=== PATIENT | female | born 1995 | race Caucasian/White ===

== ENCOUNTER 2016-10-26 20:12 | Emergency (ER) | payer OTHER ==
[2016-10-26 20:38] VITALS: BP 136/68; PULSE 69; TEMP 97.7; BMI 26.6
[2016-10-26] MEDS ORDERED: IBUPROFEN 600 MG TABLET (FP) PO ONE (22:43)
[2016-10-26] MEDS ORDERED: OXYCODONE/APAP 5/325MG COMBO TABLET ONE (22:43)
[2016-10-27] MEDS ORDERED: ONDANSETRON *ODT* 4 MG TABLET ONE (00:08)
[2016-10-27] MEDS ORDERED: IBUPROFEN 600 MG TABLET (FP) PO ONE (00:12)
[2016-10-27] MEDS ORDERED: OXYCODONE/APAP 5/325MG COMBO TABLET PO ONE (00:13)
[2016-10-27] MEDS ORDERED: ONDANSETRON *ODT* 4 MG TABLET SL ONE (00:14)
--- NOTE | 2016-10-27 00:16 | PDOC ---
History of Present Illness - History of Present Illness Initial Comments: 10/27/16 00:21 The patient is a 21 year old female with no past medical hx who presents to the ED complaining of a left sided toothache for two days. The patient reports associated neck pain and swelling, and left ear pain. She also reports fever, chill, and nausea. The patient denies vomiting, diarrhea The patient denies chest pain, SOB Social: No toxic habits reported Allergies:NKDA Surgical: none reported PCP: N/A <Fiona Mazariegos - Last Filed: 10/27/16 00:21> <Meceh Rolon - Last Filed: 10/27/16 01:06> - General Chief Complaint: Toothache Stated Complaint: TOOTHACHE Time Seen by Provider: 10/26/16 22:17 Past History <Fiona Mazariegos - Last Filed: 10/27/16 00:21> - Past Medical History Other medical history: denies - Psycho/Social/Smoking Cessation Hx Suicidal Ideation: No Smoking History: Never smoked Hx Alcohol Use: No Drug/Substance Use Hx: No Substance Use Type: None <Meche Rolon - Last Filed: 10/27/16 01:06> - Past Medical History Home Medications: Ambulatory Orders Ibuprofen [Motrin -] 600 mg PO TID PRN #21 tablet 10/27/16 Review of Systems - Review of Systems Able to Perform ROS?: Yes Comments:: 10/27/16 00:22 CONSTITUTIONAL: +fever, chills Absent: diaphoresis, generalized weakness, malaise, loss of appetite HEENT: +Left sided toothache, left ear pain Absent: rhinorrhea, nasal congestion, throat pain, throat swelling, difficulty swallowing, mouth swelling, eye pain, visual Changes CARDIOVASCULAR: Absent: chest pain, syncope, palpitations, irregular heart rate, lightheadedness , peripheral edema RESPIRATORY: Absent: cough, shortness of breath, dyspnea with exertion, orthopnea, wheezing, stridor, hemoptysis GASTROINTESTINAL: +Nausea Absent: abdominal pain, abdominal distension, vomiting, diarrhea, constipation, melena, hematochezia GENITOURINARY: Absent: dysuria, frequency, urgency, hesitancy, hematuria, flank pain, genital pain MUSCULOSKELETAL: +Neck pain and swelling Absent: arthralgia, joint swelling SKIN: Absent: rash, itching, pallor HEMATOLOGIC/IMMUNOLOGIC: Absent: easy bleeding, easy bruising, lymphadenopathy, frequent infections ENDOCRINE: Absent: unexplained weight gain, unexplained weight loss, heat intolerance, cold intolerance NEUROLOGIC: Absent: headache, focal weakness or paresthesias, dizziness, unsteady gait, seizure, mental status changes, bladder or bowel incontinence PSYCHIATRIC: Absent: anxiety, depression, suicidal or homicidal ideation, hallucinations. <Fiona Mazariegos - Last Filed: 10/27/16 00:21> *Physical Exam - Vital Signs Last Vital Signs Temp Pulse Resp BP Pulse Ox 97.7 F 69 18 136/68 99 10/26/16 20:36 10/26/16 20:36 10/26/16 20:36 10/26/16 20:36 10/26/16 20:36 - Physical Exam Comments: 10/27/16 00:22 GENERAL: Well developed, well nourished. Awake and alert. No acute distress. HEENT: +left mandibular quadrant #17 is partially rupted third molar,no pericarditis, # 19 the first molar has distal carries on half of tooth. Normocephalic, atraumatic. PERRLA, EOMI. No conjunctival pallor. Sclera are non- icteric. Moist mucous membranes. Oropharynx is clear. NECK: Supple. Full ROM. No JVD. Carotid pulses 2+ and symmetric, without bruits. No thyromegaly. No lymphadenopathy. CARDIOVASCULAR: Regular rate and rhythm. No murmurs, rubs, or gallops. Distal pulses are 2+ and symmetric. PULMONARY: No evidence of respiratory distress. Lungs clear to auscultation bilaterally. No wheezing, rales or rhonchi. ABDOMINAL: Soft. Non-tender. Non-distended. No rebound or guarding. No organomegaly. Normoactive bowel sounds. MUSCULOSKELETAL Normal range of motion at all joints. No bony deformities or tenderness. No CVA tenderness. EXTREMITIES: No cyanosis. No clubbing. No edema. No calf tenderness. SKIN: Warm and dry. Normal capillary refill. No rashes. No jaundice. NEUROLOGICAL: Alert, awake, appropriate. Cranial nerves 2-12 intact. No deficits to light touch and temperature in face, upper extremities and lower extremities. No motor deficits in the in face, upper extremities and lower extremities. Normoreflexic in the upper and lower extremities. Normal speech. Toes are down-going bilaterally. Gait is normal without ataxia. PSYCHIATRIC: Cooperative. Good eye contact. Appropriate mood and affect <Fiona Mazariegos - Last Filed: 10/27/16 00:21> - Vital Signs Last Vital Signs Temp Pulse Resp BP Pulse Ox 97.7 F 69 18 136/68 99 10/26/16 20:36 10/26/16 20:36 10/26/16 20:36 10/26/16 20:36 10/26/16 20:36 <Meche Rolon - Last Filed: 10/27/16 01:06> Medical Decision Making - Medical Decision Making 10/27/16 00:16 21-year-old female presents with left-sided toothache. On exam, she has a partially erupted third mandibular left molar and also a grossly carious first molar -Patient was given Motrin and Percocet with them, became nauseous and was given Zofran. Patient will follow-up with her dentist at the clinic tomorrow <Meche Rolon - Last Filed: 10/27/16 01:06> *DC/Admit/Observation/Transfer - Attestations Scribe Attestion: 10/27/16 00:23 Documentation prepared by Fiona Mazariegos, acting as hospitalist medical director for Meche Rolon MD/. 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
== END 2016-10-27 01:49 | disposition home or self-care (01) ==
LOC: JER 20:12 → JERFT 20:12 → JER 10-27 01:49
DX: K02.9 Dental caries, unspecified (principal)
CPT/HCPCS: 99281-25

== ENCOUNTER 2017-12-19 08:22 | Emergency (ER) | payer OTHER ==
[2017-12-19 08:43] VITALS: BP 147/67; PULSE 78; TEMP 97.6; BMI 36.6
[2017-12-19] MEDS ORDERED: AMOXICILLIN 500 MG CAPSULE (FP) PO ONE (09:12)
[2017-12-19] MEDS ORDERED: KETOROLAC TROMETHAMINE 60 MG/2 ML VIAL IM ONE (09:12)
--- NOTE | 2017-12-19 09:17 | PDOC ---
History of Present Illness - General Chief Complaint: Toothache Stated Complaint: TOOTHACHE Time Seen by Provider: 12/19/17 09:08 History Source: Patient Exam Limitations: No Limitations - History of Present Illness Initial Comments: 12/19/17 09:12 Came for evaluation of left lower jaw pain. States cracked a second lower molar on the left side one month ago and has progressively eroded. States woke up 2 days ago with tenderness which is progressively worsened. Now has some swelling to her face, and radiating pain to her ear and jaw. Denies fevers, denies any purulent drainage from area. Has a dental appointment tomorrow Timing/Duration: unsure, 1 week, getting worse Severity: mild Associated Symptoms: reports: loss of appetite, malaise. denies: fever/chills Past History - Travel Traveled outside of the country in the last 30 days: No Close contact w/someone who was outside of country & ill: No - Past Medical History Allergies/Adverse Reactions: Allergies Allergy/AdvReac Type Severity Reaction Status Date / Time No Known Allergies Allergy Verified 12/19/17 08:36 Home Medications: Ambulatory Orders Amoxicillin - [Amoxicillin 500mg Capsule -] 500 mg PO TID #21 capsule 12/19/17 Oxycodone HCl/Acetaminophen [Percocet 5-325 mg Tablet -] 1 - 2 tab PO Q4H PRN # 7 tablet MDD 4 12/19/17 COPD: No - Suicide/Smoking/Psychosocial Hx Smoking History: Never smoked Have you smoked in the past 12 months: No Information on smoking cessation initiated: No Hx Alcohol Use: No Drug/Substance Use Hx: No Substance Use Type: None Review of Systems - Review of Systems Able to Perform ROS?: Yes Is the patient limited Chadian proficient: Yes Constitutional: Yes: Symptoms Reported, See HPI, Loss of Appetite, Malaise. No : Fever HEENTM: Yes: Symptoms Reported, See HPI, Mouth Pain, Dental Problems, Mouth Swelling Respiratory: No: See HPI Musculoskeletal: Yes: See HPI. No: Symptoms Reported Integumentary: Yes: See HPI. No: Symptoms Reported All Other Systems: Reviewed and Negative *Physical Exam - Vital Signs Last Vital Signs Temp Pulse Resp BP Pulse Ox 97.6 F 78 12 147/67 99 12/19/17 08:36 12/19/17 08:36 12/19/17 08:36 12/19/17 08:36 12/19/17 08:36 - Physical Exam General Appearance: Yes: Nourished, Appropriately Dressed, Apparent Distress, Moderate Distress HEENT: positive: TMs Normal, Pharynx Normal, Other (has an eroded left lower second molar with exposed nerve roots. No gum or gingival abscess palpated). 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, Fully Oriented, Alert, Normal Mood/ Affect, Normal Response, Motor Strength 5/5 *DC/Admit/Observation/Transfer Diagnosis at time of Disposition: Pain, dental - Discharge Dispostion Disposition: HOME Condition at time of disposition: Stable Admit: No - Prescriptions Prescriptions: Amoxicillin - [Amoxicillin 500mg Capsule -] 500 mg PO TID #21 capsule Oxycodone HCl/Acetaminophen [Percocet 5-325 mg Tablet -] 1 - 2 tab PO Q4H PRN # 7 tablet MDD 4 PRN Reason: Pain - Referrals Referrals: Harpreet Velazco [Primary Care Provider] - - Patient Instructions Printed Discharge Instructions: DI for Dental Pain Additional Instructions: Rest, drink lots of fluids: Teas, water, soups Saltwater gargles/ keep mouth clean and rinse after each meal May use wet teabag for pain relief to area Avoid hard chewing foods, stick to ice cream, Jell-O, yogurt etc. Tylenol or Motrin for fever and pain Complete all medication as prescribed Seek dental appointment as soon as possible for evaluation of dental injury/pain Followup with private physician in one to 2 days as needed Return to emergency department for worsened symptoms, fevers, swelling to face or worsened pain - Post Discharge Activity Forms/Work/School Notes: Back to Work
[2017-12-19] MEDS ORDERED: KETOROLAC TROMETHAMINE 60 MG/2 ML VIAL ONE (09:35)
[2017-12-19] MEDS ORDERED: AMOXICILLIN 250 MG CAPSULE ONE (09:41)
== END 2017-12-19 09:48 | disposition home or self-care (01) ==
LOC: JER 08:22 → JERFT 08:22
PROC: 3E0233Z Introduction of Anti-inflammatory into Muscle, Percutaneous Approach (ICD-10-PCS; principal; 2017-12-19)
DX: K08.89 Other specified disorders of teeth and supporting structures (principal)
CPT/HCPCS: 84703; 99281-25

== ENCOUNTER 2018-03-10 11:54 | Emergency (ER) | payer SELFPAY ==
[2018-03-10 12:20] VITALS: BMI 33.3
--- NOTE | 2018-03-10 13:37 | PDOC ---
History of Present Illness - General Chief Complaint: Vaginal Bleeding Stated Complaint: VAGINAL BLEEDING Time Seen by Provider: 03/10/18 13:00 History Source: Patient Exam Limitations: No Limitations - History of Present Illness Initial Comments: This is a 22 YOF with unremarkable PMH who has not seen a medical provider in the past 8 years, who p/w vaginal bleeding and lower abdominal cramping worsening over the past 3 weeks, with several very large clots passed in the past 24 hours. She notes that her menstrual periods normally last up to a month , but this time is different because she is passing the clots. She does not know whether or not she may be but has been trying to get with her boyfriend for the past 7 years without success. She additionally notes mild tiredness/fatigue/weakness and nausea particularly during her menstrual period. She notes strong-smelling urine but denies any headache, lightheadedness , LOC, chest pain, SOB, burning on urination, or other symptoms. Past History - Past Medical History Allergies/Adverse Reactions: Allergies Allergy/AdvReac Type Severity Reaction Status Date / Time No Known Allergies Allergy Verified 03/10/18 12:16 Home Medications: Ambulatory Orders NK [No Known Home Medication] 03/10/18 COPD: No - Reproductive History (#): 0 Para: 0 - Suicide/Smoking/Psychosocial Hx Smoking History: Never smoked Have you smoked in the past 12 months: No Hx Alcohol Use: No Drug/Substance Use Hx: No Substance Use Type: None Review of Systems - Review of Systems Able to Perform ROS?: Yes Constitutional: Yes: Weakness, Other (fatigue). No: Chills, Fever, Unexplained wgt Loss HEENTM: No: Nose Congestion, Throat Pain Respiratory: No: Cough, Shortness of Breath Cardiac (ROS): No: Chest Pain, Palpitations ABD/GI: Yes: Nausea (mild), Other (lower abdominal cramping). No: Constipated, Diarrhea, Vomiting : Yes: Other (vaginal bleeding with clots, strong smelling urine). No: Burning, Dysuria Musculoskeletal: No: Back Pain, Neck Pain Integumentary: No: Bruising, Rash Neurological: No: Headache, Numbness, Tingling, Weakness, Dizziness Endocrine: No: Unexplained Weight Gain, Unexplained Weight Loss *Physical Exam - Vital Signs Last Vital Signs Temp Pulse Resp BP Pulse Ox 98.4 F 84 18 124/77 98 03/10/18 12:16 03/10/18 12:16 03/10/18 12:16 03/10/18 12:16 03/10/18 12:16 - Physical Exam General Appearance: Yes: Nourished, Appropriately Dressed, Obese, Other (very pleasant and well-appearing young adult female, conversive and answering questions appropriately, appears comfortable). No: Apparent Distress HEENT: positive: EOMI, Normal Voice, Hearing Grossly Normal. negative: Scleral Icterus (R), Scleral Icterus (L), Nasal Congestion Neck: positive: Trachea midline, Supple. negative: Tender, Rigid Respiratory/Chest: positive: Lungs Clear, Normal Breath Sounds. negative: Respiratory Distress, Crackles, Rhonchi, Stridor, Wheezing Cardiovascular: positive: Regular Rhythm, Regular Rate, S1, S2. negative: Edema , JVD, Murmur Female Pelvic Exam: positive: normal external exam, cervical os closed, normal adnexa, vaginal bleeding (with small dark red clot). negative: CMT, discharge, adnexal tenderness Gastrointestinal/Abdominal: positive: Normal Bowel Sounds, Soft. negative: Tender, Organomegaly, Pulsatile Mass, Guarding Musculoskeletal: positive: Normal Inspection. negative: Decreased Range of Motion, Vertebral Tenderness Extremity: positive: Normal Capillary Refill, Normal Inspection, Normal Range of Motion. negative: Tender, Cyanosis Integumentary: positive: Normal Color, Dry, Warm. 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 VS: Exam: DDX IBNLT: dysmenorrhea, menorrhagia, endometriosis, fibroids, threatened/ inevitable/incomplete/complete/septic , ectopic, PID/TOA/cervicitis, endometritis, ruptured ovarian cyst, ovarian torsion, malignancy, rectal bleed, hematuria, constipation, etc. Ordered is: UA UCx hCG Pelvic US. Unlikely threatened as cervical os is open, pt large mucus colored clot passage. Unlikely inevitable as cervical os is closed, pt denies large amount of clot passage. Unlikely incomplete as cervical os is closed, pt denies large amount of clot passage. Unlikely complete as cervical os is open, uterus not clinically contracted. Unlikely septic as cervical os is closed, no purulent discharge on pelvic exam, no uterine ttp, no f/c. Unlikely ectopic at patient denies known , no prior procedure or infection. Unlikely PID/TOA/cervicitis as patient denies h/o STIs, no report of abnormal discharge no adnexal ttp Unlikely endometritis as patient denies recent procedures or abnormal discharge , no f/c. Unlikely ovarian cyst as patient denies h/o ovarian cysts, unlikely hemorrhagic as pt denies sxs of anemia. Unlikely ovarian torsion as patient has no adnexal ttp on bimanual exam. Unlikely UTI/pyelonephritis as patient has no dysuria, strange colors/smells, no h/o recurrent UTI. Unlikely malignancy as patient has no palpable mass, no reported recent B symptoms. Labs: Blood type is:~ US: Reassessment: Repeat VS:~ ADMIT The patients symptoms persist despite ED treatments. The patient is unsafe for discharge at this time. They require further hospital observation, workup, and treatment. Microblog sent to [facility] for admission. Spoke with [facility], in agreement patient to be admitted to: XXXX Decision to Admit order placed to [facility] covering attending. DISCHARGE The patient is offered misoprostol to aid the passage of products of conception. They are counseled on the risks and benefits, they understand, and are aware this is optional. They choose to take misoprostol, dose was given here, they understand to expect more blood/pain. The patient does XXXXX require Rhogam. Workup is not concerning for emergency-level pathology at this time. The patient is appropriate for discharge home w/ close outpatient f/u. The patient is comfortable with this plan and will follow up with their PCP in 1 -3 days. She will take primarily Tylenol for pain. 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 Return precautions are discussed and they will come back to the ER if necessary. 03/10/18 13:46 *DC/Admit/Observation/Transfer Diagnosis at time of Disposition: Dysmenorrhea Menorrhagia Qualifiers: Menorrahagia type: with onset of menstrual periods Qualified Code(s): N92.2 - Excessive menstruation at puberty - Discharge Dispostion Disposition: HOME Condition at time of disposition: Stable Decision to Admit order: No - Referrals Referrals: Kely Wilhelm MD [Staff Physician] - [facility] [place] [Provider Group] - Patient Instructions Printed Discharge Instructions: DI for Menorrhagia Additional Instructions: You were seen in the ER for painful menstrual cramps and vaginal bleeding. We did an exam, and laboratory work on your blood and urine. After our assessment, we do not think you are having a medical emergency at this time, and you are safe to go home. Please take Naproxen and Tylenol for cramps, and use a hot pack or heating pad. Follow up with your horse farm manager (we are giving you referral information) and a regular primary doctor (we are giving you referral information for this too) in the next 1-3 days. Call their clinic [facility], tell them you were seen in the ER, and tell them you need an appointment. Please come back to the ER at any time (24 hours a day) for any new or worsening symptoms, like worsening pelvic pain, discharge, high fever, headache, seizure, fainting, anemia, large amount of blood loss, or other symptoms. If you are having severe or life threatening symptoms, or symptoms that make it unsafe to drive or have someone drive you, please call 911. - Post Discharge Activity
[2018-03-10 13:40] LABS: BASO % 0.6 % (0-2.0); EOS % 0.9 % (0-4.5); HEMATOCRIT 38.2 % (32.4-45.2); HEMOGLOBIN 13.2 GM/dL (10.7-15.3); LYMPH % 37.5 % (8-40); MCH 28.2 pg (25.7-33.7); MCHC 34.5 g/dl (32.0-36.0); MEAN CELL VOLUME 81.6 fl (80-96); MEAN PLT VOLUME 9.5 fl (7.5-11.1); MONO % 7.3 % (3.8-10.2); NEUT % 53.7 % (42.8-82.8); PLATELET COUNT 196 K/MM3 (134-434); RBC 4.68 M/mm3 (3.60-5.2); RDW 13.1 % (11.6-15.6); WHITE BLOOD COUNT 4.9 K/mm3 (4.0-10.0)
[2018-03-10 13:46] LABS: URINE APPEARANCE CLEAR; URINE BILIRUBIN NEGATIVE (<2.0 mg/dL); URINE COLOR YELLOW; URINE GLUCOSE (UA) NEGATIVE (NEGATIVE); URINE KETONE NEGATIVE (NEGATIVE); URINE LEUK ESTERASE NEGATIVE (NEGATIVE); URINE NITRITE NEGATIVE (NEGATIVE); URINE PROTEIN NEGATIVE (NEGATIVE); URINE UROBILINOGEN NEGATIVE mg/dL (0.2-1.0)
[2018-03-10 13:47] LABS: HCG,QUALITATIVE URINE NEGATIVE
[2018-03-10 13:51] LABS: INR 1.02 (0.82-1.09); PROTHROMBIN TIME (PATIENT) 11.5 SEC (9.7-13.0)
[2018-03-10 14:01] LABS: ALBUMIN 4.3 g/dl (3.4-5.0); ANION GAP 6 (8-16); BLOOD UREA NITROGEN 15 mg/dL (7-18); CALCIUM 9.3 mg/dL (8.5-10.1); CHLORIDE 105 mmol/L (98-107); CO2 28 mmol/L (21-32); GLUCOSE,RANDOM 104 mg/dL (74-106); POTASSIUM 4.1 mmol/L (3.5-5.1); SGOT/AST 21 U/L (15-37); SODIUM 139 mmol/L (136-145)
[2018-03-10 14:04] LABS: ALK PHOS 81 U/L (45-117); BILIRUBIN,TOTAL 0.9 mg/dL (0.2-1.0); CREATININE 0.8 mg/dL (0.55-1.02); SGPT/ALT 46 U/L (12-78); TOT PROT 8.3 g/dl (6.4-8.2)
--- NOTE | 2018-03-10 14:04 | PDOC ---
Attending Attestation - Resident Resident Name: Hope Manrique - ED Attending Attestation I have performed the following: I have examined & evaluated the patient, The case was reviewed & discussed with the resident, I agree w/resident's findings & plan, Exceptions are as noted - HPI HPI: 03/10/18 13:56 22y F presents with complaint of vaginal bleedin cecy dpassing long clots, current LMP going on for approx 3 weeks associated with mild nausea, no signs of sypmtomtaic anemia. Pt notes she has prolonged periods since her teens but never had it evlauated. pt denies any significant abd pain, fever/chills, n/v, back pain. on exam pt well appearing, no distress abd soft nontender not pale - Physicial Exam PE: 03/11/18 20:29 see above - Medical Decision Making 03/10/18 14:50 labs reviewed not anemic not pregnat recommend US for evaluation but pt declines, states she would rpeer to fu with automotive mechanical engineer for further workup of her menorrhagia
[2018-03-10 14:30] LABS: EPI CELLS RARE /HPF (FEW); URINE MUCUS RARE
[2018-03-10 15:05] VITALS: BP 128/77; PULSE 79; TEMP 98.3
== END 2018-03-10 15:16 | disposition home or self-care (01) ==
LOC: JER 11:54
DX: N92.0 Excessive and frequent menstruation with regular cycle (principal); N94.6 Dysmenorrhea, unspecified
CPT/HCPCS: 36415; 80053; 81003; 81015; 84703; 85025; 85610; 86850; 86900; 86901; 87086; 99284-25

== ENCOUNTER 2021-10-13 13:56 | Emergency (ER) | payer SELFPAY ==
[2021-10-13 14:47] VITALS: BP 112/73; PULSE 81; TEMP 97.8; BMI 31.4
[2021-10-13] MEDS ORDERED: SODIUM CHLORIDE 0.9% 1000 ML INFUS.BAG IV ONE (15:37)
[2021-10-13] MEDS ORDERED: ACETAMINOPHEN 1000 MG/100 ML VIAL IVPB ONE (15:37)
[2021-10-13] MEDS ORDERED: ACETAMINOPHEN INJECTION 100 ML IVPB ONE (15:57)
[2021-10-13 17:08] LABS: EPI CELLS >36 /uL (0-25.1); HYALINE CASTS 9 /uL (0-3.1); PH,URINE 5.5 (5.0-8.0); URINE APPEARANCE CLOUDY; URINE BACTERIA 4984 /uL (0-1359); URINE BILIRUBIN NEGATIVE (NEGATIVE); URINE COLOR YELLOW; URINE GLUCOSE (UA) NEGATIVE (NEGATIVE); URINE KETONE NEGATIVE (NEGATIVE); URINE LEUK ESTERASE 1+ (NEGATIVE); URINE NITRITE NEGATIVE (NEGATIVE); URINE PROTEIN TRACE (NEGATIVE); URINE UROBILINOGEN 0.2 mg/dL (0.2-1.0); URINE WBC 169 /uL (0-25.8)
[2021-10-13 17:14] LABS: CALCIUM 9.1 mg/dL (8.5-10.1)
[2021-10-13 17:15] LABS: ALBUMIN 3.5 g/dl (3.4-5.0); BLOOD UREA NITROGEN 7.7 mg/dL (7-18)
[2021-10-13 17:17] LABS: CREATININE 0.6 mg/dL (0.55-1.3)
[2021-10-13 17:19] LABS: BILIRUBIN,TOTAL 0.7 mg/dL (0.2-1); TOT PROT 7.6 g/dl (6.4-8.2)
[2021-10-13 17:19] LABS: HCG,QUALITATIVE URINE Negative
[2021-10-13 17:20] LABS: BASO % 0.5 % (0-2.0); EOS % 0.3 % (0-4.5); HEMATOCRIT 37.8 % (32.4-45.2); HEMOGLOBIN 12.9 GM/dL (10.7-15.3); LYMPH % 14.8 % (8-40); MCH 27.6 pg (25.7-33.7); MCHC 34.1 g/dl (32.0-36.0); MEAN CELL VOLUME 81.2 fl (80-96); MEAN PLT VOLUME 9.2 fl (7.5-11.1); MONO % 9.7 % (3.8-10.2); NEUT % 74.7 % (42.8-82.8); PLATELET COUNT 171 10^3/uL (134-434); RBC 4.66 M/mm3 (3.60-5.2); RDW 13.2 % (11.6-15.6); WHITE BLOOD COUNT 5.8 K/mm3 (4.0-10.0)
[2021-10-13 21:55] LABS: URINE RBC 39.1 /uL (0-23.9); YEAST NONE SEEN (NEGATIVE)
== END 2021-10-13 18:57 | disposition home or self-care (01) ==
LOC: JER 13:56
PROC: 3E033GC Introduction of Other Therapeutic Substance into Peripheral Vein, Percutaneous Approach (ICD-10-PCS; principal; 2021-10-13)
DX: N12 Tubulo-interstitial nephritis, not specified as acute or chronic (principal)
CPT/HCPCS: 36415; 74176-TC; 76705-TC; 80053; 81003; 83690; 84703; 85025; 87086; 87186; 87804; 87807; 99285-25; C9803; J0131; U0003; U0005

== ENCOUNTER 2022-03-27 17:15 | Emergency (ER) | payer OTHER ==
[2022-03-27 17:25] VITALS: BP 128/66; PULSE 85; TEMP 97.1; BMI 29.9
[2022-03-27] MEDS ORDERED: IBUPROFEN 600 MG TABLET (FP) PO ONE ×2 (17:55→18:05)
[2022-03-27] MEDS ORDERED: LIDOCAINE HCL 1%, 10 MG/ML (20ML VIAL) ONE (18:06)
[2022-03-27 19:36] LABS: PH,URINE 6.5 (5.0-8.0); URINE APPEARANCE CLEAR; URINE BILIRUBIN NEGATIVE (NEGATIVE); URINE COLOR YELLOW; URINE GLUCOSE (UA) 3+ (NEGATIVE); URINE KETONE NEGATIVE (NEGATIVE); URINE LEUK ESTERASE NEGATIVE (NEGATIVE); URINE NITRITE NEGATIVE (NEGATIVE); URINE PROTEIN NEGATIVE (NEGATIVE); URINE UROBILINOGEN 0.2 mg/dL (0.2-1.0)
[2022-03-27 19:59] LABS: HCG,QUALITATIVE URINE Negative
== END 2022-03-27 20:37 | disposition home or self-care (01) ==
LOC: JERFT 17:15 → JER 17:15 → JERFT 20:37
DX: R30.0 Dysuria (principal); Z11.3 Encounter for screening for infections with a predominantly sexual mode of transmission
CPT/HCPCS: 36415; 81003; 84703; 87086; 87491; 87591; 99284-25

== ENCOUNTER 2022-03-29 10:50 | Emergency (ER) | payer OTHER ==
[2022-03-29 11:15] VITALS: BP 138/90; PULSE 93; TEMP 97.8; BMI 30.7
[2022-03-29] MEDS ORDERED: FLUCONAZOLE 150 MG TABLET PO ONE ×2 (12:13→12:18)
[2022-03-29] MEDS ORDERED: KETOROLAC TROMETHAMINE 30 MG/1 ML VIAL IM ONE (12:25)
[2022-03-29] MEDS ORDERED: PHENAZOPYRIDINE HCL 100 MG TABLET (FP) PO ONE (12:27)
[2022-03-29] MEDS ORDERED: PHENAZOPYRIDINE HCL 100 MG TABLET (FP) ONE (12:29)
[2022-03-29] MEDS ORDERED: KETOROLAC TROMETHAMINE 30 MG/1 ML VIAL ONE (12:29)
== END 2022-03-29 13:56 | disposition home or self-care (01) ==
LOC: JER 10:50 → JERFT 10:50
PROC: 3E0233Z Introduction of Anti-inflammatory into Muscle, Percutaneous Approach (ICD-10-PCS; principal; 2022-03-29)
DX: B35.6 Tinea cruris (principal)
CPT/HCPCS: 99284-25

== ENCOUNTER 2023-02-07 09:15 | Emergency (ER) | payer OTHER ==
[2023-02-07 09:38] VITALS: BMI 31.6
[2023-02-07] MEDS ORDERED: KETOROLAC TROMETHAMINE 30 MG/1 ML VIAL IM ONE (11:02)
[2023-02-07] MEDS ORDERED: KETOROLAC TROMETHAMINE 30 MG/1 ML VIAL ONE (11:15)
[2023-02-07 12:06] VITALS: BP 133/85; PULSE 75; RESP 16; TEMP 98.2
== END 2023-02-07 11:55 | disposition home or self-care (01) ==
LOC: JER 09:15
PROC: 3E0233Z Introduction of Anti-inflammatory into Muscle, Percutaneous Approach (ICD-10-PCS; principal; 2023-02-07)
DX: R07.9 Chest pain, unspecified (principal)
CPT/HCPCS: 71046-TC-FY; 84703; 93005; 93010; 99284-25

== ENCOUNTER 2024-01-02 20:39 | Emergency (ER) | payer SELFPAY ==
[2024-01-02 20:58] VITALS: BP 126/77; PULSE 83; RESP 18; TEMP 97.7; BMI 31.6
== END 2024-01-02 22:30 | disposition left against medical advice (07) ==
LOC: JER 20:39 → JERFT 20:39
DX: R51.9 Headache, unspecified (principal)
CPT/HCPCS: 99281-25

== ENCOUNTER 2024-03-28 10:55 | Emergency (ER) | payer SELFPAY ==
[2024-03-28 11:00] VITALS: BP 137/95; PULSE 98; RESP 18; TEMP 98; BMI 32.4
[2024-03-28] MEDS ORDERED: IBUPROFEN 600 MG TABLET (FP) PO ONE (11:43)
[2024-03-28] MEDS ORDERED: AMOX TR/POT CLAV 875MG/125MG TABLETS (FP) ONE (11:43)
[2024-03-28] MEDS: IBUPROFEN 600 MG TABLET (FP) PO ONE (11:51)
[2024-03-28] MEDS: AMOX TR/POT CLAV 875MG/125MG TABLETS (FP) PO ONE (11:51)
== END 2024-03-28 11:52 | disposition home or self-care (01) ==
LOC: JERFT 10:55
DX: L02.416 Cutaneous abscess of left lower limb (principal)
CPT/HCPCS: 99283-25

== ENCOUNTER 2024-03-30 11:24 | Inpatient (IN) | payer SELFPAY ==
[2024-03-30] MEDS ORDERED: LIDOCAINE HCL 2% (20ML MULTI-DOSE VIAL) ONE (12:41)
[2024-03-30] MEDS ORDERED: MIDAZOLAM HCL 2 MG/2 ML SINGLE DOSE VIAL ONE (12:42)
[2024-03-30] MEDS: MIDAZOLAM HCL 2 MG/2 ML SINGLE DOSE VIAL IM ONE (12:48)
[2024-03-30] MEDS: LIDOCAINE HCL 2% (50ML VIAL) SQ ONE (13:27)
[2024-03-30] MEDS ORDERED: AMPICILLIN NA/SULBACTAM NA 1.5 GM VIAL ONE (13:58)
[2024-03-30 14:02] LABS: BASO % 0.4 % (0-2.0); EOS % 2.1 % (0-4.5); HEMATOCRIT 43.1 % (32.4-45.2); HEMOGLOBIN 14.7 GM/dL (10.7-15.3); MCH 27.8 pg (25.7-33.7); MEAN CELL VOLUME 81.7 fl (80-96); MEAN PLT VOLUME 8.9 fl (7.5-11.1); MONO % 6.6 % (3.8-10.2); NEUT % 66.9 % (42.8-82.8); PLATELET COUNT 210 10^3/uL (134-434); RBC 5.28 M/mm3 (3.60-5.2); WHITE BLOOD COUNT 6.2 K/mm3 (4.0-10.0)
[2024-03-30 14:12] LABS: INR 0.98 (0.83-1.09); PROTHROMBIN TIME (PATIENT) 11.1 SEC (9.7-13.0)
[2024-03-30] MEDS: AMPICILLIN NA/SULBACTAM NA 3 GM in SODIUM CHLORIDE 100 ML IVPB ONE (14:12)
[2024-03-30 14:14] LABS: VENOUS BASE EXCESS -0.2 mmol/L (-2-2); VENOUS O2 SATURATION 64.7 % (70-80); VENOUS PCO2 43.6 mmHg (38-52); VENOUS PH 7.379 (7.310-7.410)
[2024-03-30 14:15] LABS: ACTIVATED PTT 30.6 SECONDS (25.2-36.5)
[2024-03-30 14:21] LABS: POTASSIUM 4.1 mmol/L (3.5-5.1)
[2024-03-30 14:23] LABS: CALCIUM 9.8 mg/dL (8.5-10.1)
[2024-03-30 14:24] LABS: ALBUMIN 3.9 g/dl (3.4-5.0); BLOOD UREA NITROGEN 10.6 mg/dL (7-18)
[2024-03-30] MEDS: LACTATED RINGERS SOLUTION 1000 ML INFUS.BAG IV STA (14:26)
[2024-03-30 14:27] LABS: CREATININE 0.6 mg/dL (0.55-1.3)
[2024-03-30 14:28] LABS: BILIRUBIN,TOTAL 0.6 mg/dL (0.2-1)
[2024-03-30] MEDS: SODIUM CHLORIDE 0.9% 500 ML INFUS.BAG IV ONE (14:33)
[2024-03-30 17:50] LABS: EPI CELLS >36 /uL (0-25.1); HYALINE CASTS 2 /uL (0-3.1); URINE APPEARANCE CLOUDY; URINE BACTERIA 1643 /uL (0-1359); URINE BILIRUBIN NEGATIVE (NEGATIVE); URINE COLOR YELLOW; URINE GLUCOSE (UA) 3+ (NEGATIVE); URINE KETONE NEGATIVE (NEGATIVE); URINE LEUK ESTERASE TRACE (NEGATIVE); URINE NITRITE NEGATIVE (NEGATIVE); URINE PROTEIN TRACE (NEGATIVE); URINE RBC 127 /uL (0-23.9); URINE UROBILINOGEN 0.2 mg/dL (0.2-1.0); URINE WBC 164 /uL (0-25.8)
[2024-03-30 20:36] VITALS: BMI 30.7
[2024-03-30 20:37] VITALS: RESP 18
[2024-03-31] MEDS: MELATONIN 5 MG TABLETS PO PRN (01:21)
[2024-03-31] MEDS: SODIUM CHLORIDE 1,000 ML IV SCH (04:53)
[2024-03-31] MEDS: AMPICILLIN NA/SULBACTAM NA 3 GM in SODIUM CHLORIDE 100 ML IVPB SCH (04:53)
[2024-03-31 09:28] LABS: HEMATOCRIT 41.9 % (32.4-45.2); HEMOGLOBIN 14.4 GM/dL (10.7-15.3); MCH 28.1 pg (25.7-33.7); MCHC 34.3 g/dl (32.0-36.0); MEAN CELL VOLUME 81.8 fl (80-96); MEAN PLT VOLUME 8.8 fl (7.5-11.1); PLATELET COUNT 235 10^3/uL (134-434); RBC 5.13 M/mm3 (3.60-5.2); RDW 13.2 % (11.6-15.6); WHITE BLOOD COUNT 6.5 K/mm3 (4.0-10.0)
[2024-03-31 09:46] LABS: POTASSIUM 4.1 mmol/L (3.5-5.1)
[2024-03-31 09:53] LABS: CALCIUM 9.8 mg/dL (8.5-10.1)
[2024-03-31 09:54] LABS: BLOOD UREA NITROGEN 13.1 mg/dL (7-18); MAGNESIUM 1.9 mg/dL (1.8-2.4)
[2024-03-31 09:57] LABS: CREATININE 0.6 mg/dL (0.55-1.3); PHOSPHOROUS 4.2 mg/dL (2.5-4.9)
[2024-03-31 10:42] LABS: HIV INTERPRETATION NEGATIVE (NEGATIVE)
[2024-03-31] MEDS: INSULIN (LEVEMIR) 100 UNITS/ML UNITS SQ SCH (15:06)
[2024-03-31] MEDS: INSULIN ASPART SLIDING SCALE (NOVOLOG) 1 VIAL SQ SCH (17:45)
[2024-04-01 21:44] VITALS: TEMP 98.2
[2024-04-01] MEDS: AMPICILLIN NA/SULBACTAM NA 3 GM in SODIUM CHLORIDE 100 ML IVPB SCH (21:47)
[2024-04-02 12:19] VITALS: BP 115/77; PULSE 72
== END 2024-04-02 15:32 | disposition home or self-care (01) | DRG 383 ==
LOC: JER 11:24 → JERFT 11:24 → JERBED 13:29 → J5S 20:02
PROVIDERS: ADMIT Internal Medicine
PROC: 0H98XZZ Drainage of Buttock Skin, External Approach (ICD-10-PCS; principal; 2024-03-30)
DX: L02.31 Cutaneous abscess of buttock (principal); E11.65 Type 2 diabetes mellitus with hyperglycemia
CPT/HCPCS: 36415; 72193-TC; 80048; 80053; 81003; 82308; 82803; 82962; 83036; 83605; 83735; 84100; 84703; 85025; 85027; 85610; 85730; 86140; 86850; 86900; 86901; 87040; 87070; 87076; 87081; 87086; 87205; 87389; 93005; 93010; 99285-25; Q9967

== ENCOUNTER 2024-07-22 13:20 | Emergency (ER) | payer SELFPAY ==
[2024-07-22 13:26] VITALS: BP 125/71; PULSE 89; RESP 18; TEMP 97.7; BMI 23.3
[2024-07-22 15:00] LABS: THROAT:GRP A STREP NOT DETECTED (NOTDETECTED)
== END 2024-07-22 15:58 | disposition home or self-care (01) ==
LOC: JERFT 13:20
DX: R09.89 Other specified symptoms and signs involving the circulatory and respiratory systems (principal); M79.10 Myalgia, unspecified site; R68.83 Chills (without fever); B34.9 Viral infection, unspecified; Z20.822 Contact with and (suspected) exposure to COVID-19
CPT/HCPCS: 0241U-QW; 87651; 99283-25